=== PATIENT | female | born 1985 | race Caucasian/White ===

== ENCOUNTER 2019-11-25 18:51 | Emergency (ER) | payer OTHER, SELFPAY ==
--- NOTE | ~2019-11-25 | XR_ITS ---
EXAMINATION: XR ankle RT min 3V DATE: 11/25/2019 20:35 INDICATION: Right ankle pain. TECHNIQUE: 4 views of right ankle were obtained. COMPARISON: Right tibia and fibula radiographs 08/30/2008 FINDINGS: Bone alignment is normal. No fracture. Joint spaces are well maintained. There is ankle sof t tissue swelling. IMPRESSION: 1. No fracture. Reviewed, dictated and finalized at location A. IMPRESSION: 1. No fracture.
--- NOTE | ~2019-11-25 | XR_ITS ---
EXAMINATION: XR forearm RT 2V DATE: 11/25/2019 19:19 INDICATION: Right forearm dog bite. TECHNIQUE: 2 views of right forearm were obtained. COMPARISON: None. FINDINGS: Bone alignment is normal. No fracture. Joint spaces are well maintained. There is no elbow joint effusion. There is a laceration of the forearm. No radiopaque foreign body. IMPRESSION: 1. No fracture or radiopaque foreign body. Reviewed, dictated and finalized at location A.
--- NOTE | ~2019-11-25 | XR_ITS ---
EXAMINATION: XR forearm LT 2V DATE: 11/25/2019 19:19 INDICATION: Left forearm dog bite. TECHNIQUE: 2 views of left forearm were obtained. COMPARISON: None. FINDINGS: Bone alignment is normal. No fracture. Joint spaces are well maintained. There is no elbow joint effusion. There is a laceration of the dorsum of the forearm with soft tissue swelling. There a re foci of gas in the soft tissues, likely from the laceration. IMPRESSION: 1. No fracture or radiopaque foreign body. Reviewed, dictated and finalized at location A.
[2019-11-25 19:01] VITALS: BP 145/99; PULSE 107; RESP 18; TEMP 36.4; O2SAT 100
--- NOTE | 2019-11-25 19:04 | ED.WOUNDLAC ---
HPI - Wound/Laceration General Chief Complaint: Wound/Laceration Stated Complaint: dog bites Time Seen by Provider: 11/25/19 19:03 Source: patient Mode of arrival: ambulatory Limitations: no limitations History of Present Illness HPI narrative: Patient is a 33-year-old female that presents for evaluation dog bites to both arms and right ankle. 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 Patient states that she was bitten on both forearms and in her right ankle. 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 Patient then brought to the emergency department for evaluation. She reports pain in the bilateral forearms which is dull and aching in nature. She denies any numbness or tingling. Patient states she is not up-to-date on her tetanus. She denies any pain with movement of the right ankle. She is moving both wrists without pain. She can move both elbows without pain. No fall or head trauma. Related Data Allergies Allergy/AdvReac Type Severity Reaction Status Date / Time No Known Allergies Allergy Unknown Verified 11/25/19 19:03 DENIES ANY MEDICATION,FOOD, Allergy Mild Unknown Uncoded 11/25/19 19:03 OR LATEX ALLERGIES Review of Systems Review of Systems: Narrative: CONSTITUTIONAL: Denies fever CARDIOVASCULAR: Denies chest pain RESPIRATORY: Denies cough or dyspnea. GASTROINTESTINAL: Denies abdominal pain SKIN: Denies rash, reports several lacerations and puncture wound MUSCULOSKELETAL: Denies back pain NEUROLOGIC: Denies headache PMFSH Past Medical History Medical History (Updated 11/25/19 @ 19:55 by Emelina Lee MD) No pertinent past medical history Social History Social History (Updated 11/25/19 @ 19:39 by Emelina Lee MD) Smoking status: Current every day smoker Tobacco type: cigarettes Alcohol intake: never Substance use: never Gender identity (if verbalized by the patient): Female Exam Narrative: Exam Narrative: GENERAL: Awake, alert, conversant HEAD: Normocephalic, atraumatic. EYES: PERRLA and EOMI. ENT: Nares clear, no rhinorrhea or epistaxis. Mucous membranes moist. NECK: Supple. CHEST: No respiratory distress, breathing even and non labored HEART: Regular rate, sinus rhythm ABDOMEN:Non distended, non tender EXTREMITIES: Normal range of motion in the bilateral elbows. Normal ROM in both wrists. Bilateral edema both forearms. Right forearm: 4 puncture wounds. 1 cm superficial right forearm laceration. No active bleeding. No extravasation of tissue. Radial pulse 2+. Intact sensation median, ulnar, radial nerve distribution. Left forearm: 2 cm open, gaping laceration to proximal left forearm, adipose tissue visualized. There is some macerated tissue. Minimal active bleeding. 3 cm open, gaping laceration to the medial forearm, adipose tissue visualized, macerated tissue present. No foreign bodies identified. Intact sensation median, ulnar, radial nerve distribution. Radial pulse 2+. There is edema throughout the forearm. Compartments are soft bilaterally. Right ankle: Superficial puncture wound medial ankle. DP pulse 2+. No pain with range of motion of the ankle. SKIN: Warm, dry, no rash. NEURO:No focal deficits. Alert and oriented x3 Course Vital Signs Vital signs: Vital Signs Temperature 36.4 C 11/25/19 19:01 Pulse Rate 107 H 11/25/19 19:01 Respiratory Rate 18 11/25/19 19:01 Blood Pressure 145/99 H 11/25/19 19:01 Pulse Oximetry 100 11/25/19 19:01 Temperature 36.4 C 11/25/19 19:01 Pulse Rate 107 H 11/25/19 19:01 Respiratory Rate 18 11/25/19 19:01 Blood Pressure 145/99 H 11/25/19 19:01 Pulse Oximetry 100 11/25/19 19:01 Procedures Laceration Laceration 1: Date: 11/25/19 Time: 20:20 Site: upper extremity
[2019-11-25] MEDS: AMOXICILLIN/CLAVULANATE K 875-125 MG TAB 1 TABLET PO (20:09)
[2019-11-25] MEDS: HYDROcodone/acetaminophen (*CRX) 5-325 MG TABLET 1 TAB (20:09)
[2019-11-25] MEDS: TETANUS,DIPHTHERIA,AC PERTUSSIS ADULT (0.5 ML) BOOSTRIX IM (20:10)
== END 2019-11-25 21:13 | disposition home or self-care (01) ==
PROVIDERS: Emergency Provider Emergency Medicine
DX: S51.852A Open bite of left forearm, initial encounter (principal); F17.210 Nicotine dependence, cigarettes, uncomplicated; Z23 Encounter for immunization; W54.0XXA Bitten by dog, initial encounter
CPT/HCPCS: 12002; 73090; 73610; 90471; 90715; 99284; A9270